=== PATIENT | female | born 1975 | race Caucasian/White ===

== ENCOUNTER 2018-11-23 12:28 | Emergency (ER) | payer OTHER ==
[2018-11-23] MEDS ORDERED: Ibuprofen 200 MG TAB ONE (13:18)
[2018-11-23] MEDS ORDERED: traMADol HCl 50 MG TAB ONE (13:18)
--- NOTE | 2018-11-23 17:44 | RAD ---
LEFT SHOULDER THREE VIEWS: 11/23/18 No fracture, dislocation, or arthritic changes are seen. The AC joint is normal in width. The adjacen t ribs and visible portions of the left lung appeared normal. The scapula appears normal. IMPRESSION: No significant findings. POS: HOME
== END 2018-11-23 13:20 | disposition home or self-care (01) ==
LOC: BURERS 12:28
DX: S43.005A Unspecified dislocation of left shoulder joint, initial encounter (principal); X58.XXXA Exposure to other specified factors, initial encounter

== ENCOUNTER 2020-11-08 09:19 | Emergency (ER) | payer BC, OTHER ==
[2020-11-08] MEDS ORDERED: Acetaminophen/Codeine 30-300mg Tablet ONE (10:26)
[2020-11-08] MEDS ORDERED: predniSONE 20 MG TAB ONE (10:26)
[2020-11-08] MEDS ORDERED: Ketorolac Tromethamine 30 MG/ML VIAL ONE (10:26)
== END 2020-11-08 10:51 | disposition home or self-care (01) ==
LOC: BURERS 09:19
DX: M51.16 Intervertebral disc disorders with radiculopathy, lumbar region (principal); F17.210 Nicotine dependence, cigarettes, uncomplicated
CPT/HCPCS: 96372; 99283; J1885; J7512